=== PATIENT | female | born 2000 | race Caucasian/White ===

== ENCOUNTER 2020-01-31 08:02 | Emergency (ER) | payer OTHER, MEDICAID, SELFPAY ==
--- NOTE | 2020-01-31 08:07 | ED_ITS ---
HPI - Seizure General Chief Complaint: Neuro Symptoms/Deficit Stated Complaint: seizure tuesday morning,haven't felt great since Time Seen by Provider: 01/31/20 08:04 Source: patient and family Mode of arrival: Ambulatory Limitations: no limitations History of Present Illness HPI Narrative: Patient is a 19-year-old female with history of epilepsy presenting after seizure 4 days ago. Says she has not had a seizure in about 2 years she is not currently on anti seizure medication. She does have a neurologist in [place] in she has not seen in a while. She says she got up to go to the bathroom her dad found her on the floor seizing she is unsure how long it lasted, she denies any urinary incontinence but did bite her tongue. Since then she just does not feel great she says she feels a little shaky a little nauseous she thinks maybe she hit her head. She says that she has been sleeping well she denies any recent alcohol use although she does drink occasionally. MD complaint: seizure Onset (ago): day(s) Description of Episode: tonic-clonic movement Treatments prior to arrival: none Related Data Allergies Allergy/AdvReac Type Severity Reaction Status Date / Time CODEINE Allergy Unknown FAMILY IS Uncoded 07/27/17 12:27 ALLERGIC Review of Systems Review of Systems Narrative: GENERAL: Denies chills, fatigue, malaise, fever, sweats, travel HEENT: Denies sinus pain, ear pain, sore throat, difficulty swallowing, neck pain RESPIRATORY: Denies dyspnea, cough, wheezing, hemoptysis, sputum. CARDIOVASCULAR: Denies chest pain, palpitations, orthopnea, edema GASTROINTESTINAL: + nausea Denies vomiting, abdominal pain, diarrhea, constipation, melena. : Denies dysuria, frequency, incontinence, hematuria, urinary retention, flank pain. MUSCULOSKELETAL: Denies weakness, joint pain, or bony pain SKIN: No rash, no erythema, no pruritus NEUROLOGIC: See HPI PSYCHIATRIC: No concerning psychosocial issues. 12 point review of systems is negative except for those stated above and HPI Patient History Medical History Epilepsy (Acute) Social History Smoking Status: Current every day smoker alcohol intake frequency: 0-2 drinks per day Exam Initial Vital Signs Initial Vital Signs: Vital Signs Temperature 98.3 F 01/31/20 08:09 Pulse Rate 73 01/31/20 08:09 Respiratory Rate 18 01/31/20 08:09 Blood Pressure 125/83 01/31/20 08:09 Pulse Oximetry 100 01/31/20 08:09 GENERAL: Well-appearing, well-nourished and in no acute distress. HEENT: Head atraumatic,EOMI, pupils reactive, face symmetric, moist mucous membranes CARDIOVASCULAR: Regular rate and rhythm without murmurs, rubs or gallops. RESPIRATORY: Breath sounds equal bilaterally, no wheezes rales or rhonchi. ABDOMEN: Soft, nontender. Normoactive bowel sounds all 4 quadrants. No guarding or rebound. EXTREMITIES: Normal range of motion, no clubbing or edema. Neurovascularly intact NEUROLOGICAL: Alert and oriented x4.Normal gait and speech. Cranial nerves II through XII grossly intact. Associate Property [employer] strength equal bilaterally lower extremity strength equal SKIN: Warm, dry, no laceration, no petechiae, no rashes or lesions. Course Orders Ordered: ED Orders 01/31/20 08:00 Urine Drug Screen, Rapid Stat 01/31/20 08:28 Basic Metabolic Panel Stat Complete Blood Count AUTO DIFF Stat Magnesium Stat Discontinued Medications Sodium Chloride (Normal Saline 0.9%) 1,000 mls @ 1,000 mls/hr IV BOLUS ONE Stop: 01/31/20 09:12 Last Infusion: 01/31/20 09:48 Dose: 1,000 mls/hr Documented by: Admin: 01/31/20 08:22 Dose: 1,000 mls/hr Documented by: TALISHA Ondansetron HCl (Zofran) 4 mg IV NOW ONE Stop: 01/31/20 08:14 Last Admin: 01/31/20 08:23 Dose: 4 mg Documented by: CORBINONEStephenie Vital Signs Vital signs: Vital Signs - 8 hr 01/31/20 08:09 01/31/20 09:43 Temperature 98.3 F Pulse Rate 73 66 Respiratory Rate 18 14 Blood Pressure 125/83 114/62 Pulse Oximetry 100 100 MDM - Seizure Lab Data Result diagrams: 01/31/20 08:28 01/31/20 08:28 Labs: Lab Results 10/15/20 10/15/20 10/15/20 Range/Units 08:00 08:28 08:28 WBC 6.7 (4.5-11.0) X10^3/uL RBC 4.39 (4.0-5.2) X10^6/uL Hgb 13.2 (12.0-16.0) g/dL Hct 39.4 (36-46) % MCV 89.6 (80-100) fL MCH 30.1 (26-34) PG MCHC 33.6 (30-36) % RDW 12.7 (11.6-14.8) % Plt Count 350 (150-400) X10^3/uL Neut % (Auto) 58.2 (50-75) % Lymph % (Auto) 30.4 (25-40) % Hand % (Auto) 8.1 (3-14) % Eos % (Auto) 2.6 (2-4) % Baso % (Auto) 0.7 (0-2) % Neut # (Auto) 3900 (8785-7286) /uL Lymph # (Auto) 2000 (1731-4139) /uL Hand # (Auto) 500 (0-900) /uL Eos # (Auto) 200 (0-450) /uL Baso # (Auto) 0 (0-100) /uL Sodium 136 L (137-145) mmol/L Potassium 4.3 (3.4-5.1) mmol/L Chloride 107 (98-107) mmol/L Carbon Dioxide 21 L (22-32) mmol/L BUN 21 H (7-17) mg/dL Creatinine 0.69 (0.52-1.04) mg/dL Estimated GFR > 60.0 (>60) mL/min BUN/Creatinine Ratio 30.4 H (6-22) Glucose 86 (70-100) mg/dL Calcium 9.0 (8.4-10.2) mg/dL Magnesium 1.8 (1.6-2.3) mg/dL U Opiates 300ng/mL cut Negative (Negative) Ur Oxycodone Screen Negative (Negative) Urine Methadone Screen Negative (Negative) Ur Barbiturates Screen Negative (Negative) U Tricyclic Antidepress Negative (Negative) Ur Phencyclidine Scrn Negative (Negative) Ur Amphetamines Screen Negative (Negative) U Methamphetamines Scrn Negative (Negative) Ur MDMA Scrn (Ecstasy) Negative (Negative) U Benzodiazepines Scrn Negative (Negative) Urine Cocaine Screen Negative (Negative) U Marijuana (THC) Screen Negative (Negative) Point of Care Testing Test Results Negative Urine Dip Bedside Urine Glucose Negative Bedside Urine Bilirubin - Negative Bedside Urine Ketone - Negative Urine Specific [place] 1.025 Bedside Urine Occult Blood - Negative Bedside Urine pH 6.0 Bedside Urine Protein - Negative Bedside Urine Urobilinogen - Negative Bedside Urine Nitrite - Negative Bedside Urine Leukocytes - Negative Esterase MDM Narrative Medical decision making narrative: Patient has appointment with her neurologist on Tuesday of next week. Discussed with her no driving until she is seen by Neurology she understands and agrees. She overall is feeling better after Zofran and IV fluids. Blood work is reassuring. At this time no indication for head CT Discharge Plan Departure Patient Disposition: Home Clinical Impression: Seizure, Epilepsy Discharge Date/Time: 01/31/20 09:49 Instructions: DI for Seizure Disorder -- Adult Activity Restrictions/Additional Instructions: DO NOT DRIVE UNTIL CLEARED BY YOUR NEUROLOGIST *You have been diagnosed with a seizure *What to do: Please see your neurologist to talk about restarting medications *Continue to take medications as directed *Follow up with your primary care provider in 2-3 days *Return to ER if you should have current seizure, persistent vomiting or any new, worsening or concerning symptoms
[2020-01-31 08:09] VITALS: BP 125/83; PULSE 73; RESP 18; TEMP 36.8; O2SAT 100; BMI 21.9
[2020-01-31] MEDS: SODIUM CHLORIDE 0.9% 1,000 ML 1000 ML IV (08:22)
[2020-01-31] MEDS: ONDANSETRON 4 MG/2 ML INJ IV (08:23)
[2020-01-31 08:37] LABS: Add Manual Diff / Slide Review NO; Basophils Absolute Auto 0 /uL (0-100); Basophils Percent Auto 0.7 % (0-2); Eosinophils Absolute Auto 200 /uL (0-450); Eosinophils Percent Auto 2.6 % (2-4); Hematocrit 39.4 % (36-46); Hemoglobin 13.2 g/dL (12.0-16.0); Lymphocytes Absolute Auto 2000 /uL (1100-4500); Lymphocytes Percent Auto 30.4 % (25-40); Mean Corpuscular HGB Conc 33.6 % (30-36); Mean Corpuscular Hemoglobin 30.1 PG (26-34); Mean Corpuscular Volume 89.6 fL (80-100); Monocytes Absolute Auto 500 /uL (0-900); Monocytes Percent Auto 8.1 % (3-14); Neutrophils Absolute Auto 3900 /uL (1500-7000); Neutrophils Percent Auto 58.2 % (50-75); Platelet Count 350 X10^3/uL (150-400); Red Blood Cell Count 4.39 X10^6/uL (4.0-5.2); Red Cell Distribution Width 12.7 % (11.6-14.8); White Blood Cell Count 6.7 X10^3/uL (4.5-11.0)
[2020-01-31 08:49] LABS: BUN Creatinine Ratio 30.4 (6-22); Blood Urea Nitrogen 21 mg/dL (7-17); Carbon Dioxide 21 mmol/L (22-32); Chloride 107 mmol/L (98-107); Estimated Glomerular Filt Rate > 60.0 mL/min (>60); Glucose 86 mg/dL (70-100); HEMOLYSIS < 15 (0-50); Magnesium 1.8 mg/dL (1.6-2.3); Potassium 4.3 mmol/L (3.4-5.1); Sodium 136 mmol/L (137-145)
--- NOTE | 2020-01-31 08:54 | PC.NURSE ---
pt reports a seizure a few days ago. reports that she feels weak and tired
[2020-01-31 09:41] LABS: Ur Creatinine Normal (Normal); Ur Specific Gravity Normal (Normal); Urine Tetrahydrocannabinol Negative (Negative); Urine pH Normal (Normal)
[2020-01-31 09:42] LABS: UR Morphine/Opiate cutoff 300 Negative (Negative); Urine Amphetamines Negative (Negative); Urine Barbiturates Negative (Negative); Urine Benzodiazepines Negative (Negative); Urine Cocaine Negative (Negative); Urine MDMA Negative (Negative); Urine Methadone Negative (Negative); Urine Methamphetamines Negative (Negative); Urine Oxycodone Negative (Negative); Urine Phencyclidine Negative (Negative); Urine Tricyclic Antidepressant Negative (Negative)
[2020-01-31 09:43] VITALS: BP 114/62; PULSE 66; RESP 14; O2SAT 100
== END 2020-01-31 09:49 | disposition home or self-care (01) ==
PROVIDERS: Emergency Provider Emergency Medicine; Referring Provider Emergency Medicine
DX: G40.909 Epilepsy, unspecified, not intractable, without status epilepticus (principal)
CPT/HCPCS: 36415; 80048; 80305; 81003; 81025; 83735; 85025; 96361; 96374; 99284; J2405